=== PATIENT | male | born 1975 | race Caucasian/White ===

== ENCOUNTER 2017-06-21 14:54 | Emergency (ER) | payer MEDICAID ==
[~2017-06-21] VITALS: Ht 172.7 cm; Wt 64.5 kg
[2017-06-21] MEDS ORDERED: HYDR25TA PO (15:26)
[2017-06-21] MEDS ORDERED: BECL8.7A6 IH (15:26)
[2017-06-21] MEDS ORDERED: ALBU8.5H8 IH (15:26)
[2017-06-21] MEDS ORDERED: MIRT15 PO (15:26)
[2017-06-21 15:36] VITALS: BP 141/98
[2017-06-21] MEDS ORDERED: ALBUTEROL SULFATE HFA 90 MCG/PUFF 8 GM INHALER IH ONE (16:00)
[2017-06-21] MEDS ORDERED: BECLOMETHASONE DIPR 40 MCG/PUFF 8.7 GM INHALER IH ONE (16:00)
== END 2017-06-21 16:32 | disposition home or self-care (01) ==
LOC: EMS 15:02
DX: Z76.0 Encounter for issue of repeat prescription (principal); J44.9 Chronic obstructive pulmonary disease, unspecified; F90.9 Attention-deficit hyperactivity disorder, unspecified type; F17.210 Nicotine dependence, cigarettes, uncomplicated
CPT/HCPCS: 94640; 99283; J3535